=== PATIENT | male | born 1980 | race Hispanic/Latino ===

== ENCOUNTER 2017-08-20 16:21 | Emergency (ER) | payer SELFPAY ==
[2017-08-20 16:28] VITALS: BP 149/89; PULSE 92; TEMP 98.1; O2SAT 98
--- NOTE | 2017-08-20 17:12 | C.PDOC ---
History Of Present Illness Patient is a 37 y/o male who presents to the ED requesting opioid detox. Patient is not prescreened. Patient denies any physical complaints at this time. Time Seen by Provider: 08/20/17 16:55 Chief Complaint (Nursing): Substance Abuse History Per: Patient History/Exam Limitations: no limitations Onset/Duration Of Symptoms: Days Current Symptoms Are (Timing): Gone Suicide/Self Injury Attempted (Context): None Modifying Factor(s): Other (opioids) Recent travel outside of the [place]: No Past Medical History Reviewed: Historical Data, Nursing Documentation, Vital Signs Vital Signs: Last Vital Signs Temp 98.1 F 08/20/17 16:26 Pulse 92 H 08/20/17 16:26 Resp 14 08/20/17 16:26 BP 149/89 08/20/17 16:26 Pulse Ox 98 08/20/17 17:25 - Medical History PMH: No Chronic Diseases Surgical History: No Surg Hx Family History: States: No Known Family Hx - Social History Hx Tobacco Use: Yes (heavy smoker) Hx Alcohol Use: No Hx Substance Use: Yes (LAST USE COUPLE HOURS AGO) - Immunization History Hx Tetanus Toxoid Vaccination: No Hx Influenza Vaccination: No Hx Pneumococcal Vaccination: No Review Of Systems Constitutional: Negative for: Fever, Chills Psych: Positive for: Other (requesting detox). Negative for: Suicidal ideation Physical Exam - Physical Exam Appears: Non-toxic, No Acute Distress Skin: Normal Color, Warm, Dry Head: Atraumatic, Normacephalic Oral Mucosa: Moist Chest: Symmetrical Cardiovascular: Rhythm Regular, No Murmur Respiratory: Normal Breath Sounds, No Rales, No Rhonchi, No Wheezing Gastrointestinal/Abdominal: Soft, No Tenderness Extremity: Normal ROM (x4) Neurological/Psych: Oriented x3, Normal Speech, Normal Cognition ED Course And Treatment O2 Sat by Pulse Oximetry: 98 Progress Note: Patient was notified there are no beds available in detox. Prescreen information and number given to patient. Discharged. - Physician Consult Information Time Consulting Physician Contacted: 17:24 Outcome Of Conversation: no detox bed avail per crisis Disposition Counseled Patient/Family Regarding: Diagnosis, Need For Followup - Disposition Referrals: [facility] [Other] Disposition: HOME/ ROUTINE Disposition Time: 17:24 Condition: GOOD Instructions: Drug Abuse and Drug Addiction (DC) Forms: [employer] (Romanian) - Clinical Impression Clinical Impression: Drug abuse - Scribe Statement The provider has reviewed the documentation as recorded by the Scribe Edilma Boyce All medical record entries made by the Scribe were at my direction and personally dictated by me. I have reviewed the chart and agree that the record accurately reflects my personal performance of the history, physical exam, medical decision making, and the department course for this patient. I have also personally directed, reviewed, and agree with the discharge instructions and disposition.
[2017-08-20 18:01] VITALS: RESP 18
== END 2017-08-20 17:46 | disposition home or self-care (01) ==
LOC: C.ER 16:21
DX: F19.10 Other psychoactive substance abuse, uncomplicated (principal)